=== PATIENT | male | born 1965 | race African-American/Black ===

== ENCOUNTER 2021-09-05 03:42 | Emergency (ER) | payer SELFPAY ==
[~2021-09-05] VITALS: Ht 172.7 cm; Wt 5.0 kg
[2021-09-05 03:49] VITALS: BP 136/63
[2021-09-05] MEDS ORDERED: HYDROCODONE/ACETAMINOPHEN 5/325MG TABLET PO ONE (04:15)
[2021-09-05] MEDS ORDERED: METHOCARBAMOL 500MG TABLET PO ONE (04:15)
[2021-09-05] MEDS ORDERED: METH-773 MT (05:34)
[2021-09-05] MEDS ORDERED: LIDO1ADH5 TP (05:34)
[2021-09-05] MEDS ORDERED: NAPR-681 MT (05:34)
== END 2021-09-05 05:51 | disposition home or self-care (01) ==
LOC: ER 03:42
DX: M54.50 Low back pain, unspecified (principal)
CPT/HCPCS: 99283